=== PATIENT | male | born 2000 | race Asian ===

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

== ENCOUNTER 2022-09-25 23:09 | Emergency (ER) | payer OTHER ==
[2022-09-25 23:18] VITALS: BP 157/103; PULSE 109; RESP 18; TEMP 99; BMI 26.4
[2022-09-25] MEDS ORDERED: SULFAMETHOXAZOLE/TRIMETHOPRIM 800MG/160MG D.S. TABLET PO ONE (23:20)
[2022-09-25] MEDS ORDERED: SULFAMETHOXAZOLE/TRIMETHOPRIM 800MG/160MG D.S. TABLET ONE (23:21)
[2022-09-25] MEDS ORDERED: NAPROXEN 500 MG TABLET PO ONE (23:21)
[2022-09-25] MEDS ORDERED: NAPROXEN 500 MG TABLET ONE (23:22)
== END 2022-09-25 23:39 | disposition home or self-care (01) ==
LOC: FER 23:09
DX: R22.42 Localized swelling, mass and lump, left lower limb (principal)
CPT/HCPCS: 36415; 84550; 99283-25

== ENCOUNTER 2023-01-27 17:45 | Emergency (ER) | payer OTHER ==
[2023-01-27 18:09] VITALS: BP 155/88; PULSE 85; RESP 18; TEMP 98.3; BMI 26.4
== END 2023-01-27 18:45 | disposition home or self-care (01) ==
LOC: FER 17:45
DX: S93.402A Sprain of unspecified ligament of left ankle, initial encounter (principal); X50.1XXA Overexertion from prolonged static or awkward postures, initial encounter; Y93.69 Activity, other involving other sports and athletics played as a team or group
CPT/HCPCS: 73610-TC-LT-FY; 99283-25